=== PATIENT | male | born 1955 | race Caucasian/White ===

== ENCOUNTER → 2022-01-29 06:59 | Outpatient (CLI) | payer SELFPAY ==
[2022-01-28 17:21] LABS: Basophils # 0.1 K/mm3 (0-0.2); Basophils % 1.1 % (0.1-2.0); Eosinophils # 0.1 K/mm3 (0.0-0.4); Eosinophils % 1.3 % (0.1-12.0); Hematocrit 42.1 % (42.0-52.0); Hemoglobin 14.7 g/dL (14.1-18.0); Lymphocytes # 2.4 K/mm3 (0.7-4.5); Mean Corpuscular HGB Conc 34.8 g/dL (31.8-35.4); Mean Corpuscular Hemoglobin 30.2 pg (27.0-31.2); Mean Corpuscular Volume 86.6 fl (80-94); Mean Platelet Volume 9.7 fl (7.4-10.4); Monocytes # 0.4 K/mm3 (0.1-1.0); Monocytes % 3.2 % (1.7-9.3); Neutrophils % 72.4 % (37.0-80.0); Platelet Count 297 K/mm3 (142-424); Red Blood Count 4.86 M/mm3 (4.60-6.20); Red Cell Distribution Width 12.9 % (11.5-17.5)
[2022-01-28 17:29] LABS: Creatinine,Urine Random 19 mg/dL (Not Estab.)
[2022-01-28 17:30] LABS: Microalbumin/Creatinine Ratio 87.3
[2022-01-28 17:31] LABS: Chloride 90 mmol/L (98-107); Potassium 4.6 mmoL/L (3.5-5.1); Sodium 126 mmol/L (136-145)
[2022-01-28 17:33] LABS: Alanine Aminotransferase 15 U/L (12-78); Alkaline Phosphatase 170 U/L (38-126); Aspartate Amino Transferase 22 U/L (17-59); Bilirubin,Total 0.5 mg/dl (0.2-1.3); Blood Urea Nitrogen 25 mg/dl (9-20); Estimated Glomerular Filt Rate 300 ml/min (>60); GFR (African American) 363 ML/MIN (>60)
[2022-01-28 17:34] LABS: Albumin Level 4.7 g/dl (3.5-5.0); Albumin/Globulin Ratio 1.7 (1.1-1.8); Anion Gap 16.6 mEq/L (5-15); Calcium 10.2 mg/dl (8.4-10.2); Carbon Dioxide 24 mmol/L (22.0-30.0); Chol/HDL Ratio 2.6 (1-3.5); Cholesterol 196 mg/dl (140-200); Globulin 2.8 g/dL (1.3-3.2); HDL Cholesterol 76 mg/dl (40-60); Total Protein,Serum 7.5 g/dl (6.3-8.2); Triglycerides 167 mg/dl (30-150); VLDL Cholesterol 33 mg/dL (0-40)
[2022-01-28 17:41] LABS: Glucose 445 mg/dl (74-100)
[2022-01-28 17:45] LABS: Direct LDL Cholesterol 94.45 mg/dL (100-129)
[2022-01-28 18:04] LABS: Thyroid Stimulating Hormone 0.65 uIU/mL (0.465-4.68)
[2022-01-28 18:15] LABS: Hemoglobin A1C > 14.0 % (4.0-6.0)
[2022-01-28 18:59] LABS: Prostate Specific Ag Screen 0.4 ng/ml (0.0-4.0)
[2022-01-30 12:15] LABS: C-Peptide 0.9 ng/mL (1.1-4.4)
== END ==
PROVIDERS: PCP Family Medicine; Visit Provider Family Medicine
DX: R73.9 Hyperglycemia, unspecified (principal); Z12.5 Encounter for screening for malignant neoplasm of prostate
CPT/HCPCS: 80053; 80061; 82043; 82570; 82746; 83036; 84443; 84681; 85025; G0103